=== PATIENT | male | born 1955 | race Caucasian/White ===

== ENCOUNTER → 2022-11-19 | Outpatient (CLI) | payer MEDICARE, BC ==
--- NOTE | 2022-11-19 08:39 | XR ---
EXAMINATION TYPE: XR KUB DATE OF EXAM: 11/19/2022 Comparison: None Clinical History: 67-year-old male N20.0 Findings: Abdominal aortobiiliac endovascular stent grafts. [place] sac of the abdominal aorta may measure up to 5. His period Additional vascular calcifications in the pelvis and central prostatic calcifications. Pelvic phleboliths are present. Mild degenerative change in both hips. There is moderate overall sto ol burden. A number of bilateral renal calculi are present on both sides measuring up to 1.4 cm on th e right and 9 mm on the left. Impression: Moderate stool burden. Nonobstructive bowel gas pattern. Numerous bilateral renal calculi measuring up to 1.4 cm on the righ t and 9 mm on the left. Previous aortobiiliac endovascular stent graft. [place] sac may measure up to 5.3 cm.
== END | disposition home or self-care (01) ==
LOC: RADXRMAIN 07:48
PROVIDERS: ATTEND Urology
DX: N20.0 Calculus of kidney (principal); R19.5 Other fecal abnormalities
CPT/HCPCS: 74018

== ENCOUNTER → 2024-05-10 | Outpatient (CLI) | payer MEDICARE, BC ==
--- NOTE | 2024-05-11 12:22 | US ---
EXAMINATION TYPE: US kidneys/renal and bladder DATE OF EXAM: 05/10/2024 COMPARISON: NONE CLINICAL INDICATION: Male, 69 years old with history of N20.0; h/o multiple stones and stenting last year, no symptoms now EXAM MEASUREMENTS: Right Kidney: 7.9 x 4.1 x 4.5 cm Left Kidney: 8.9 x 4.9 x 5.9 cm Right Kidney: 4.8 x 5.5 x 4.4cm inferior pole cyst, multiple stones, largest = 1.0 x 1.5cminferior po le Left Kidney: multiple stones seen, largest = 1.0 x 1.0cm Bladder: wnl Bilateral Jets seen: yes No evidence for hydronephrosis. Bilateral renal calculi. IMPRESSION: 1. No evidence for obstructive uropathy. 2. Right renal cyst. 3. Bilateral renal calculi.
== END | disposition home or self-care (01) ==
LOC: RADUSWWP 16:10
DX: N20.0 Calculus of kidney (principal); N28.1 Cyst of kidney, acquired
CPT/HCPCS: 76770